=== PATIENT | female | born 1995 | race African-American/Black ===

== ENCOUNTER 2024-09-14 19:41 | Emergency (ER) | payer SELFPAY ==
[~2024-09-14] VITALS: Ht 172.7 cm; Wt 99.8 kg
[2024-09-14 19:54] VITALS: PULSE 87; RESP 18; TEMP 98.3; O2SAT 99
[2024-09-14 20:55] LABS: CLARITY,URINE CLOUDY (CLEAR); COLOR,URINE YELLOW (YELLOW); LEUKOCYTE ESTERASE ,URINE NEGATIVE (NEGATIVE); PH,URINE 8 (5 - 7)
[2024-09-14 20:56] LABS: BILIRUBIN,URINE NEGATIVE (NEGATIVE); GLUCOSE, URINE NEGATIVE (NEGATIVE); KETONES,URINE NEGATIVE (NEGATIVE); NITRITE,URINE NEGATIVE (NEGATIVE); PREGNANCY TEST, URINE NEGATIVE (NEGATIVE); PROTEIN,URINE DIPSTICK TRACE (NEGATIVE); URINE UROBILINOGEN 0.2 mg/dL (0.2 - 1)
[2024-09-14 21:12] LABS: BACTERIA,URINE MODERATE /HPF; EPITHELIAL CELLS,URINE MODERATE /LPF
[2024-09-14 21:13] LABS: MUCUS,URINE FEW (RARE)
[2024-09-14 23:29] LABS: BASOPHILS % 0.6 % (0.0-1.0); EOSINOPHILS % 0.6 % (0.0-6.0); HEMOGLOBIN 13.8 g/dL (12.0-16.0); LYMPHOCYTES % 39.1 % (18.0-39.1); MEAN CORPUSCULAR HEMOGLOBIN 28.6 pg (28-32); MEAN CORPUSCULAR HGB CONC 33.7 g/dL (31-35); MEAN CORPUSCULAR VOLUME 85.1 fL (81-99); MONOCYTES # (AUTO) 0.4 (0.2-0.8); MONOCYTES % 7.3 % (4.4-11.3); NEUTROPHILS # (AUTO) 2.6 (2.1-6.9); NEUTROPHILS % 52.2 % (38.7-80.0); PLATELET COUNT 345 x10e3/uL (140-360); RED BLOOD COUNT 4.82 x10e6/uL (3.6-5.1); RED CELL DISTRIBUTION WIDTH 13.1 % (11.7-14.4); WHITE BLOOD COUNT 5.06 x10e3/uL (4.8-10.8)
[2024-09-15 00:01] LABS: ANION GAP 14.9 mmol/L (8-16); CALCIUM 9.3 mg/dL (8.4-10.2); CREATININE, SERUM 0.76 mg/dL (0.57-1.11); POTASSIUM 3.9 mmol/L (3.5-5.1)
[2024-09-15] MEDS ORDERED: LACTULOSE20 GM/30 M PO (00:05)
== END 2024-09-15 00:43 | disposition home or self-care (01) ==
LOC: ER 22:43
DX: K59.00 Constipation, unspecified (principal); D64.9 Anemia, unspecified; F17.210 Nicotine dependence, cigarettes, uncomplicated
CPT/HCPCS: 36415; 74018; 80048; 81001; 81025; 85025; 99283

== ENCOUNTER 2024-10-12 20:16 | Emergency (ER) | payer SELFPAY ==
[~2024-10-12] VITALS: Ht 172.7 cm; Wt 99.8 kg
[~2024-10-12 20:16] MED LIST: LACTULOSE20 GM/30 M PO
[2024-10-12 20:21] VITALS: PULSE 100; RESP 18; TEMP 98.3
[2024-10-12] MEDS ORDERED: KETOROLAC TROME10 MG PO (20:22)
[2024-10-12] MEDS ORDERED: CLINDAMYCIN HC150 MG PO (20:22)
[2024-10-12 21:15] VITALS: BP 147/98; PULSE 73; RESP 18; TEMP 98.3; O2SAT 100
[2024-10-13] MEDS: LIDOCAINE HCL 1% LOCAL INJ 20 ML VIAL INJ STA (03:27)
== END 2024-10-12 20:55 | disposition home or self-care (01) ==
LOC: ER 20:19
DX: K08.89 Other specified disorders of teeth and supporting structures (principal); D64.9 Anemia, unspecified
CPT/HCPCS: 99283